=== PATIENT | male | born 1960 | race Two or more races ===

== ENCOUNTER 2016-10-22 20:23 | Emergency (ER) | payer MEDICAID ==
[2016-10-22 21:20] LABS: BASOPHIL % 0.6 % (0-2); PLATELET COUNT 359 x10^3mcL (130-400); RED CELL DISTRIBUTION WIDTH 13.2 % (11.5-14.5)
[2016-10-22 21:31] LABS: CALCIUM 9.3 mg/dL (8.5-10.1); CARBON DIOXIDE 26.7 mmol/L (21-32); CHLORIDE SERUM 99 mmol/L (98-107); CREATININE SERUM 1.1 mg/dL (0.7-1.3); GFR1 > 60 mL/min; GLUCOSE SERUM 116 mg/dL (74-106); POTASSIUM SERUM 4.5 mmol/L (3.5-5.1); SODIUM SERUM 137 mmol/L (136-145)
[2016-10-22 21:36] LABS: ALBUMIN 3.6 g/dL (3.4-5.0); ALKALINE PHOSPHATASE 93 U/L (46-116); ALT/SGPT 26 U/L (16-63); AST/SGOT 13 U/L (15-37); BILIRUBIN TOTAL 0.3 mg/dL (0.20-1.00); TOTAL PROTEIN, SERUM 7.5 g/dL (6.4-8.2)
[2016-10-22 21:56] LABS: CK-MB 2.1 ng/mL (0-3.6)
[2016-10-23 01:38] VITALS: BP 124/78
== END 2016-10-23 01:38 | disposition home or self-care (01) ==
LOC: ED 20:23
PROVIDERS: Emergency Medicine
DX: J45.901 Unspecified asthma with (acute) exacerbation (principal); E11.9 Type 2 diabetes mellitus without complications
CPT/HCPCS: 83880; J2930; J3475; J7613; J7644